=== PATIENT | female | born 1970 | race Two or more races ===

== ENCOUNTER 2019-07-24 13:53 | Emergency (ER) | payer MEDICAID, OTHER ==
[~2019-07-24] VITALS: Ht 167.6 cm; Wt 90.7 kg
[2019-07-24 14:04] VITALS: BP 110/67
== END 2019-07-24 16:14 | disposition home or self-care (01) ==
LOC: ER 13:53
DX: J20.9 Acute bronchitis, unspecified (principal)
CPT/HCPCS: 71046

== ENCOUNTER 2019-10-23 12:11 | Emergency (ER) | payer MEDICAID ==
[~2019-10-23] VITALS: Ht 167.6 cm; Wt 72.6 kg
[2019-10-23 12:59] VITALS: BP 139/42
[2019-10-23] MEDS ORDERED: IBUPROFEN 600 MG TAB PO ONE (13:45)
== END 2019-10-23 13:47 | disposition home or self-care (01) ==
LOC: ER 12:11
DX: S46.912A Strain of unspecified muscle, fascia and tendon at shoulder and upper arm level, left arm, initial encounter (principal); S80.12XA Contusion of left lower leg, initial encounter; W01.0XXA Fall on same level from slipping, tripping and stumbling without subsequent striking against object, initial encounter; Y93.01 Activity, walking, marching and hiking; Y92.89 Other specified places as the place of occurrence of the external cause; Y99.8 Other external cause status
CPT/HCPCS: 73030; 73590

== ENCOUNTER 2020-04-15 15:45 | Emergency (ER) | payer MEDICAID ==
[~2020-04-15] VITALS: Ht 160 cm; Wt 78.0 kg
[2020-04-15 16:53] VITALS: BP 132/60
[2020-04-15] MEDS ORDERED: methylPREDNISolone SOD SUCC 125 MG/2 ML VL IM ONE (17:15)
[2020-04-15] MEDS ORDERED: EPINEPHrine HCL 1 MG/1 ML AMP SC ONE (17:15)
== END 2020-04-15 17:54 | disposition home or self-care (01) ==
LOC: ER 15:45
DX: T78.3XXA Angioneurotic edema, initial encounter (principal)
CPT/HCPCS: 96372; 99284; J0171; J2930

== ENCOUNTER 2021-11-16 14:35 | Emergency (ER) | payer MEDICAID ==
[~2021-11-16] VITALS: Ht 167.6 cm; Wt 81.6 kg
[2021-11-16 16:10] VITALS: BP 121/70
[2021-11-16] MEDS ORDERED: METH750T22 PO (16:24)
[2021-11-16] MEDS ORDERED: IBUP800T27 PO (16:24)
== END 2021-11-16 16:36 | disposition home or self-care (01) ==
LOC: ER 14:35
DX: S16.1XXA Strain of muscle, fascia and tendon at neck level, initial encounter (principal); V43.52XA Car driver injured in collision with other type car in traffic accident, initial encounter; Y93.89 Activity, other specified; Y92.89 Other specified places as the place of occurrence of the external cause; Y99.8 Other external cause status
CPT/HCPCS: 72040

== ENCOUNTER 2023-12-08 08:30 | Emergency (ER) | payer MEDICAID ==
[~2023-12-08] VITALS: Ht 167.6 cm; Wt 87.1 kg
[~2023-12-08 08:30] MED LIST: AZITTAB PO; DIPH25CA66 PO; IBUP-1456 PO; METH-1182 PO; PRED20TA2 PO; PROM1SOL4 PO
[2023-12-08 11:22] VITALS: BP 140/67; PULSE 56; RESP 16; TEMP 97.7; O2SAT 100
[2023-12-08] MEDS: medroxyPROGESTERone ACETATE 5 MG TAB PO ONE (11:33)
== END 2023-12-08 11:37 | disposition home or self-care (01) ==
LOC: ER 08:30
DX: N92.0 Excessive and frequent menstruation with regular cycle (principal); R10.2 Pelvic and perineal pain; E78.5 Hyperlipidemia, unspecified
CPT/HCPCS: 36415; 84702

== ENCOUNTER 2024-06-05 20:15 | Emergency (ER) | payer MEDICAID ==
[~2024-06-05] VITALS: Ht 165.1 cm; Wt 88.4 kg
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
[2024-06-05] MEDS ORDERED: IBUP-1455 PO (21:50)
[2024-06-05] MEDS ORDERED: ACET500T58 PO (21:50)
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
[2024-06-05 22:43] VITALS: BP 112/59; TEMP 97.9
[2024-06-05 22:44] VITALS: PULSE 67; RESP 18; O2SAT 98
[2024-06-05] MEDS: KETOROLAC TROMETH 60MG/2ML VIAL IM ONE (22:47)
== END 2024-06-05 23:58 | disposition home or self-care (01) ==
LOC: ER 20:15
DX: S16.1XXA Strain of muscle, fascia and tendon at neck level, initial encounter (principal); S09.90XA Unspecified injury of head, initial encounter; Z79.52 Long term (current) use of systemic steroids; V43.52XA Car driver injured in collision with other type car in traffic accident, initial encounter; Y93.89 Activity, other specified; Y92.410 Unspecified street and highway as the place of occurrence of the external cause; Y99.8 Other external cause status
CPT/HCPCS: 70450; 72125; 96372; 99285; J1885

== ENCOUNTER 2024-12-31 07:57 | Emergency (ER) | payer MEDICAID ==
[~2024-12-31] VITALS: Ht 162.6 cm; Wt 86.1 kg
[~2024-12-31 07:57] MED LIST changes: +ACET500T58 PO; +IBUP-1455 PO
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
--- NOTE | 2024-12-31 08:47 | DVH ---
INDICATION: LOW BACK PAIN, NO INJURY TECHNIQUE: 3 views of the lumbar spine were obtained. COMPARISON: None FINDINGS: There are no acute fractures or subluxations. Mild scoliosis IMPRESSION: No acute fracture or subluxation.
[2024-12-31] MEDS ORDERED: METH-1182 PO (09:02)
[2024-12-31 09:05] VITALS: BP 114/67; PULSE 65; RESP 16; TEMP 97.9; O2SAT 98
[2024-12-31] MEDS: KETOROLAC TROMETH 60MG/2ML VIAL IM ONE (09:12)
== END 2024-12-31 09:27 | disposition home or self-care (01) ==
LOC: ER 07:57
DX: S39.012A Strain of muscle, fascia and tendon of lower back, initial encounter (principal); M41.9 Scoliosis, unspecified; E78.5 Hyperlipidemia, unspecified; D64.9 Anemia, unspecified; Z79.899 Other long term (current) drug therapy; X58.XXXA Exposure to other specified factors, initial encounter; Y93.89 Activity, other specified; Y92.89 Other specified places as the place of occurrence of the external cause; Y99.8 Other external cause status
CPT/HCPCS: 72100; 96372; 99283; J1885

== ENCOUNTER 2025-02-23 04:22 | Emergency (ER) | payer MEDICAID ==
[~2025-02-23] VITALS: Ht 167.6 cm; Wt 86.2 kg
--- NOTE | 2025-02-23 04:56 | ED.PDOC ---
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 Denies fevers but reports chills, weight loss, night sweats, she visited [place] 2 months back to visit family who was in vegetative state and had cough (productive). Denies dysphagia, patient does not remember what kind of hypothyroidism she has. Diagnosed 1 year back. Patient seen and examined. Has inspiratory wheezing. Social history: Lives with kids were healthy, denies smoking/drinking/drug use Medication: Levothyroxine 88mcg Chief Complaint: Cough Time Seen by MD: 04:27 Primary Care Provider: UNKNOWN Mode of Arrival: Ambulatory Past Medical History PAST MEDICAL HISTORY: Anemia, High Lipids Past Medical History (Other): Hypothyroidism Surgical History: Denies all surgeries LICENSE AND PERMIT SPECIALIST History: Denies all LICENSE AND PERMIT SPECIALIST Hx, Ovarian Cysts Family History Family History: Reviewed,noncontributory to illness Social History Smoker: Non-Smoker Alcohol: Denies ETOH Use Drugs: Denies Drug Use Lives In: Home Constitutional: reports: chills, diaphoresis, fatigue, malaise, sweats EENTM: denies: blurred vision, double vision, ear bleeding, ear discharge, ear drainage, ear pain, ear ringing, eye pain, eye redness, hearing loss, mouth pain, mouth swelling, nasal discharge, nose bleeding, nose congestion, nose pain, photophobia, tearing, throat pain, throat swelling, voice changes, others Respiratory: reports: cough, wheezing Cardiovascular: denies: chest pain, dizzy spells, diaphoresis, Dyspnea on exertion, edema, irregular heart beat, left arm pain, lightheadedness, palpitations, PND, syncope, others Gastrointestinal: denies: abdomen distended, abdominal pain, blood streaked bowels, constipated, diarrhea, dysphagia, difficulty swallowing, hematemesis, melena, nausea, poor appetite, poor fluid intake, rectal bleeding, rectal pain, vomiting, others Genitourinary: denies: abnormal vagina bleeding, burning, dyspareunia, dysuria, flank pain, frequency, hematuria, incontinence, pain, , vagina discharge, urgency, others Neurological: denies: dizziness, fainting, headache, left sided numbness, left sided weakness, numbness, paresthesia, pre-existing deficit, right sided numbness, right sided weakness, seizure, speech problems, tingling, tremors, weakness, others Musculoskeletal: denies: back pain, gout, joint pain, joint swelling, muscle pain, muscle stiffness, neck pain, others Integumetry: denies: bruises, change in color, change in hair/nails, dryness, laceration, lesions, lumps, rash, wounds, others Allergic/Immunocompromised: denies: Difficulty Healing, Frequent Infections, Hives, Itching, others Hematologic/Lymphatic: denies: anemia, blood clots, easy bleeding, easy bruising, swollen glands, others Endocrine: denies: excessive hunger, excessive sweating, excessive thirst, excessive urination, flushing, intolerance to cold, intolerance to heat, unexplained weight gain, unexplained weight loss, others Psychiatric: denies: anxiety, bipolar disorder, depression, hopeless, panic disorder, schizophrenia, sleepless, suicidal, others Physical Exam General Appearance: No Apparent Distress, Normal HEENT: Normal ENT Inspection, Pharynx Normal, TMs Normal Neck: Full Range of Motion, Non-Tender, Normal, Normal Inspection Respiratory: Chest Non-Tender, Decreased Breath Sounds, No Accessory Muscle Use, No Respiratory Distress, Wheezing Cardiovascular: No Edema, No JVD, No Murmur, No Gallop, Normal Peripheral Pulses, Regular Rate/Rhythm Breast Exam: Deferred Gastrointestinal: No Organomegaly, Non Tender, No Pulsatile Mass, Normal Bowel Sounds, Soft Genitalia: Deferred Pelvic: Deferred Rectal: Deferred Extremities: No calf tenderness, Normal capillary refill, Normal inspection, Normal range of motion, Non-tender, No pedal edema Musculoskeletal : Apperance: Normal Neurologic: Alert, triple valve tester II-XII nml as Tested, No Motor Deficits, Normal Affect, Normal Mood, No Sensory Deficits Cerebellar Function: Normal Reflexes: Normal Skin: Dry, Normal Color, Warm Lymphatic: No Adenopathy Was a procedure done? Was a procedure done?: No Differential Dx Differential Diagnosis: Anxiety, Asthma, Bronchitis, CHF, Pneumonia X-Ray, Labs, Meds, VS Vital Signs Date Time Temp Pulse Resp B/P (MAP) Pulse Ox O2 Delivery O2 Flow Rate FiO2 02/23/25 04:25 97.9 66 18 122/56 95 97.9 Lab Test 9/30/25 05:03 Range/Units White Blood Count 5.2 4.4-10.8 10^3/uL Red Blood Count 4.63 4.0-5.20 10^6/uL Hemoglobin 10.4 L 12.2-16.2 g/dL Hematocrit 33.0 L 36.0-46.0 % Mean Corpuscular Volume 71.3 L 80.0-100.0 fL Mean Corpuscular Hemoglobin 22.5 L 28.0-32.0 pg Mean Corpuscular Hemoglobin Concent 31.5 L 32.0-36.0 g/dL Red Cell Distribution Width 15.9 H 11.8-14.3 % Platelet Count 292 140-450 10^3/uL Mean Platelet Volume 7.9 6.9-10.8 fL Neutrophils (%) (Auto) 46.0 37.0-80.0 % Lymphocytes (%) (Auto) 30.6 10.0-50.0 % Monocytes (%) (Auto) 8.6 0.0-12.0 % Eosinophils (%) (Auto) 14.0 H 0.0-7.0 % Basophils (%) (Auto) 0.8 0.0-2.0 % Neutrophils # (Auto) 2.4 1.6-8.6 10 ^3/uL Lymphocytes # (Auto) 1.6 0.4-5.4 10 ^3/uL Monocytes # (Auto) 0.4 0-1.3 10 ^3/uL Eosinophils # (Auto) 0.7 0-0.8 10 ^3/uL Basophils # (Auto) 0 0-0.2 10 ^3/uL Nucleated Red Blood Cells 0.1 % Sodium Level 140 136-145 mmol/L Potassium Level 3.6 3.5-5.1 mmol/L Chloride Level 105 98-107 mmol/L Carbon Dioxide Level 25 20-31 mmol/L Anion Gap 10 5-15 Blood Urea Nitrogen 12 9-23 mg/dL Creatinine 0.70 0.550-1.02 mg/dL Glomerular Filtration Rate Calc 103 >90 mL/min BUN/Creatinine Ratio 17.1 10.0-20.0 Serum Glucose 112 H 74-106 mg/dL Lactic Acid Level 0.8 0.4-2.0 mmol/L Calcium Level 8.7 8.7-10.4 mg/dL B-Type Natriuretic Peptide Pending Current Medications Medications (Trade) Dose Ordered Sig/Alfredito Route Start Time Stop Time Status Last Admin Ipratropium Timbo (Atrovent Medneb) 0.5 mg ONCE ONCE NEB 02/23/25 05:00 02/23/25 05:01 DC 02/23/25 05:15 Albuterol (Ventolin Medneb) 2.5 mg ONCE ONCE NEB 02/23/25 05:00 02/23/25 05:01 DC 02/23/25 05:15 Methylprednisolone Sodium Succinate (Solu Medrol) 40 mg ONCE ONCE IV 02/23/25 05:00 02/23/25 05:01 DC 02/23/25 06:25 Azithromycin (Zithromax Tablet) 500 mg ONCE ONCE PO 02/23/25 06:15 02/23/25 06:16 DC 02/23/25 06:29 Images Reviewed?: Images reviewed and evaluated by me Time of 1ST Reevaluation: 06:00 Reevaluation 1ST: Unchanged Consultation: PCP Patient Education/Counseling: Diagnosis, Treatment, Prognosis, Need For Follow Up Family Education/Counseling: No Family Present SEPSIS Sepsis Screen Date sepsis recognized/suspect: Feb 23, 2025 Time Sepsis recognized/suspect: 424 Recent Procedure: No On Antibiotic Therapy: No Respiratory Rate >20: No Heart Rate >90: No Temp<36 C (96.8 F) or >38.3 C: No SBP <90 or MAP <65 mmHG: No New Acute Mental Status Change: No Is the patient on CPAP, BIPAP,: No Physician Orders Covid19 Antigen Celina (02/23/25 ) Rapid Influenza A&B (02/23/25 04:53) Mrsa Screen (02/23/25 04:53) Chest Xray 1 View (02/23/25 04:53) B-Type Natriuretic Peptide (02/23/25 06:07) Vital Signs Date Time Temp Pulse Resp B/P (MAP) Pulse Ox O2 Delivery O2 Flow Rate FiO2 02/23/25 04:25 97.9 66 18 122/56 95 97.9 Laboratory Tests Test 02/23/25 05:03 Lactic Acid Level 0.8 mmol/L (0.4-2.0) White Blood Count 5.2 10^3/uL (4.4-10.8) Medications Medications Dose Ordered Sig/Alfredito Route Start Time Stop Time Status Last Admin Dose Admin Albuterol 2.5 mg ONCE ONCE NEB 02/23/25 05:00 02/23/25 05:01 DC 02/23/25 05:15 Azithromycin 500 mg ONCE ONCE PO 02/23/25 06:15 02/23/25 06:16 DC 02/23/25 06:29 Ipratropium Timbo 0.5 mg ONCE ONCE NEB 02/23/25 05:00 02/23/25 05:01 DC 02/23/25 05:15 Methylprednisolone Sodium Succinate 40 mg ONCE ONCE IV 02/23/25 05:00 02/23/25 05:01 DC 02/23/25 06:25 Departure 1 Departure Time of Disposition: 06:46 Impression: Primary Impression: Bronchitis Additional Impression: Viral pneumonia Disposition: HOME / SELF CARE / HOMELESS Condition: Stable Additional Instructions: FOLLOW UP WITH PRIMARY CARE PHYSICIAN WITHIN THE NEXT 3 DAYS, CHECK TSH LEVELS TABLET AZITHROMYCIN 500 MG P.O. DAILY FOR THE NEXT 4 DAYS ALBUTEROL INHALER, TWICE DAILY NEEDED FOR SHORTNESS OF BREATHS, COUGH PLEASE RETURN TO THE ER IN CASE OF FEVERS, CHILLS, WORSENING SHORTNESS OF BREATH AND COUGH e-Prescriptions Albuterol Sulfate (Albuterol Sulfate Hfa) 108 Mcg/Act Aer 108 MCG IN BIDPRN PRN for 30 Days, #3 AER 0 Refills Prov: SADIQ JEWELL RESIDENT 02/23/25 Azithromycin (Azithromycin) 500 Mg Tab 500 MG PO DAILY for 4 Days, #4 TAB 0 Refills Prov: SADIQ JEWELL RESIDENT 02/23/25 Discharged With: Self Critical Care Note Critical Care Time?: No Stability Stability form required: No Heart Score Heart Score: Heart Score Response (Comments) Value History Slightly Suspicious 0 EKG N/A 0 Age 45-64 1 Risk Factors No known risk factors 0 Troponin N/A 0 Total 1 SADIQ JEWELL RESIDENT Feb 23, 2025 04:56
[2025-02-23] MEDS: IPRATROPIUM BROM 0.5 MG/2.5ML INH SOL NEB ONE (05:15)
[2025-02-23] MEDS: ALBUTEROL SULF 2.5 MG/0.5ML(0.5%) NEB SOLN NEB ONE (05:15)
[2025-02-23 05:28] LABS: Hematocrit 33.0 % (36.0-46.0); Hemoglobin 10.4 g/dL (12.2-16.2); Mean Corpuscular Hemoglobin 22.5 pg (28.0-32.0); Mean Corpuscular Volume 71.3 fL (80.0-100.0); Nucleated Red Blood Cells % 0.1 %
[2025-02-23 05:30] LABS: Chloride 105 mmol/L (98-107); Potassium 3.6 mmol/L (3.5-5.1); Sodium 140 mmol/L (136-145)
[2025-02-23 05:31] LABS: Anion Gap 10 (5-15); Calcium 8.7 mg/dL (8.7-10.4); Carbon Dioxide 25 mmol/L (20-31)
[2025-02-23 05:37] LABS: BUN/Creatinine Ratio 17.1 (10.0-20.0); Blood Urea Nitrogen 12 mg/dL (9-23)
[2025-02-23 05:39] LABS: Glucose 112 mg/dL (74-106)
--- NOTE | 2025-02-23 05:55 | DVH ---
CHEST RADIOGRAPH Indication: productive cough Technique: Single frontal view of the chest was obtained COMPARISON: XY CHEST TWO VIEWS ROUTINE on DOS: 08/24/23, CHEST TWO VIEWS ROUTINE on DOS: 07/24/19 FINDINGS: Lines and Tubes: None Lungs: Increased interstitial prominence Pleura: No effusion. No pneumothorax. Cardiomediastinal contours: Unremarkable Bones: Unremarkable IMPRESSION: Possible viral pneumonitis or mild pulmonary vascular congestion.
[2025-02-23] MEDS ORDERED: AZIT500T66 PO (06:10)
[2025-02-23] MEDS ORDERED: ALBU108A5 IN (06:10)
[2025-02-23] MEDS: methylPREDNISolone SOD SUCC 40 MG/ML VL IV ONE (06:25)
[2025-02-23] MEDS: AZITHROMYCIN 250 MG TAB PO ONE (06:29)
[2025-02-23 07:35] VITALS: BP 131/67; PULSE 60; RESP 18; TEMP 98.9; O2SAT 97
== END 2025-02-23 07:36 | disposition home or self-care (01) ==
LOC: ER 04:22
DX: J40 Bronchitis, not specified as acute or chronic (principal); J12.9 Viral pneumonia, unspecified; B97.89 Other viral agents as the cause of diseases classified elsewhere; Z79.899 Other long term (current) drug therapy
CPT/HCPCS: 36415; 71045; 80048; 83605; 83880; 85025; 94640; 96374; 99284; J2919